=== PATIENT | female | born 1990 | race Caucasian/White ===

== ENCOUNTER 2020-09-27 12:04 | Emergency (ER) | payer BC, SELFPAY ==
--- NOTE | ~2020-09-27 | XR_ITS ---
EXAMINATION: XR chest 1V portable EXAM DATE: 09/27/2020 14:30 INDICATION: Cough, congestion. TECHNIQUE: Portable AP frontal chest x-ray was obtained. Comparison is made to prior examination from 04/14/2015. FINDINGS: The lungs are clear. There are no pleural effusions. The cardiomediastinal silhouette is within normal limits. There is no pneumothorax suspected. The bones and soft tissues are unremarkab le. IMPRESSION: No acute cardiopulmonary findings. Reviewed, dictated and finalized at location A.
[2020-09-27 12:09] VITALS: BP 122/72; PULSE 89; RESP 20; TEMP 36.8; O2SAT 98
[2020-09-27 13:59] VITALS: BP 112/71; PULSE 83; RESP 20; TEMP 36.8; O2SAT 100
[2020-09-27 14:29] VITALS: BP 107/79; PULSE 81; RESP 18; O2SAT 99
--- NOTE | 2020-09-27 14:44 | ED.URI ---
HPI - URI/Sore Throat General Chief Complaint: Upper Respiratory Infection Stated Complaint: sore throat Time Seen by Provider: 09/27/20 14:15 Source: patient Mode of arrival: ambulatory Limitations: no limitations History of Present Illness HPI Narrative: This is a 30-year-old female that presents to the emergency department for cold symptoms x2 weeks. Reports cough, congestion, and sinus pain. Reports over the last couple of days she also started to have a sore throat. Denies fever, chest pain, or shortness of breath. Related Data Allergies Allergy/AdvReac Type Severity Reaction Status Date / Time No Known Allergies Allergy Verified 09/27/20 14:48 Review of Systems Review of Systems: Narrative: CONSTITUTIONAL: Denies fever ENT: Reports rhinorrhea, congestion and sore throat CARDIOVASCULAR: Denies chest pain RESPIRATORY: Reports cough. Denies dyspnea. All systems reviewed & are unremarkable except as noted in HPI and below PMFSH Past Medical History Medical History (Updated 09/27/20 @ 15:24 by Chrissy Aguilar PA-C) No active medical problems Social History Social History (Updated 09/27/20 @ 14:45 by Chrissy Aguilar PA-C) Smoking status: Current every day smoker Gender identity (if verbalized by the patient): Female Exam Narrative: Exam Narrative: GENERAL: Well-appearing, well-nourished, and in no acute distress. HEAD: Normocephalic, atraumatic. EYES: EOMI. ENT: Nares clear, no rhinorrhea or epistaxis. Mucous membranes moist. Oropharynx without tonsillar hypertrophy exudate or other lesions. Bilateral TMs pearly diaz non-bulging. Tender to palpation of the frontal sinuses bilaterally NECK: Supple. No adenopathy or masses. CHEST: Clear to auscultation. No respiratory distress. No wheezes rales or rhonchi HEART: Regular rate and rhythm. No murmur heard. Normal peripheral pulses. EXTREMITIES: Normal range of motion. No edema. SKIN: Warm, dry, no rash. NEURO: No focal deficits. Alert and oriented x3. PSYCH: Normal mood and affect Course Vital Signs Vital signs: Vital Signs Temperature 98.3 F 09/27/20 12:09 Pulse Rate 89 09/27/20 12:09 Respiratory Rate 20 09/27/20 12:09 Blood Pressure 122/72 09/27/20 12:09 Pulse Oximetry 98 09/27/20 12:09 Temperature 98.2 F 09/27/20 13:59 Pulse Rate 81 09/27/20 14:29 Respiratory Rate 18 09/27/20 14:29 Blood Pressure 107/79 09/27/20 14:29 Pulse Oximetry 99 09/27/20 14:29 MDM - URI/Sore Throat MDM Narrative Medical decision making narrative: Patient presents the emergency department for cough, congestion, and sore throat. She is afebrile and nontoxic-appearing. Chest x-ray without acute cardiopulmonary findings. Strep screen was negative. SARS-CoV-2 was sent. For ongoing sinus congestion over the last couple of weeks we will start patient on oral antibiotic for bacterial sinusitis. She is stable and felt appropriate for further outpatient evaluation. She was given warnings to return to the ER Lab Data Attestation: I reviewed the patient's lab results. Labs: Lab Results 09/27/20 Range/Units 14:37 SARS-CoV-2 RNA (RT-PCR) Pending Strep Screen Presumptive Negative *(Reference Range: Negative)* Imaging Data Radiologist's impression: ITS Impressions Chest X-Ray 09/27/20 14:42 IMPRESSION: No acute cardiopulmonary findings. Critical Care Time Critical Care Time Critical Care Time: No Discharge Plan Discharge Clinical Impression: Acute bacterial sinusitis Patient Disposition: Home, Self-Care Condition: Stable Instructions: Antibiotic Form, Sinusitis (ED) Additional Instructions: Return to the emergency department for worsening symptoms, or any other concerns Remain well-hydrated, get plenty of rest. Take Tylenol or Motrin [id number] for pain as needed. Flonase for nasal congestion. Zyrtec for runny nose. Lozen
[2020-09-28 18:48] LABS: SARS-CoV-2 RNA PCR Negative
== END 2020-09-27 15:45 | disposition home or self-care (01) ==
PROVIDERS: Physician Assistant; Emergency Provider Emergency Medicine
DX: J01.90 Acute sinusitis, unspecified (principal); B96.89 Other specified bacterial agents as the cause of diseases classified elsewhere; Z20.822 Contact with and (suspected) exposure to COVID-19; F17.200 Nicotine dependence, unspecified, uncomplicated
CPT/HCPCS: 71045; 87081; 87880; 99283; C9803; U0003; U0005

== ENCOUNTER 2022-01-01 09:09 | Outpatient (RCR) | payer BC, SELFPAY ==
[2021-12-31 10:27] LABS: Hematocrit 29.7 % (37.0-47.0); Hemoglobin 9.7 g/dL (12.0-15.0)
[2021-12-31 10:40] LABS: Glucose 1 Hour PP 50gm Dose 97 mg/dL
[2021-12-31 11:22] LABS: HIV 1/2 Ab P24 Ag Result Negative (Negative)
[2022-01-01] MEDS: RHO(D) IMMUNE GLOBULIN 300 MCG/2 ML SYRINGE IM (21:48)
== END 2022-01-01 10:00 | disposition home or self-care (01) ==
LOC: ANHLAB 09:09
PROVIDERS: Visit Provider Obstetrics & Gynecology
DX: Z11.4 Encounter for screening for human immunodeficiency virus [HIV] (principal); Z29.13 Encounter for prophylactic Rho(D) immune globulin; O36.0190 Maternal care for anti-D [Rh] antibodies, unspecified trimester, not applicable or unspecified; Z3A.00 Weeks of gestation of pregnancy not specified
CPT/HCPCS: 36415; 82947; 85014; 85018; 85461; 86703; 90384; 96372; G0432; J2790

== ENCOUNTER 2022-03-17 05:59 | Inpatient (IN) | payer OTHER, MEDICAID, SELFPAY ==
[2022-03-17] VITALS (26 sets, daily range): BP systolic 82–134; BP diastolic 41–81; PULSE 69–94; TEMP 36.6–37.6; BMI 33.5
--- OUTSIDE RECORDS SUMMARY | 2022-03-17 06:06 | XMS_ITS | Encounter Summary ---
:1990 Author Reason for Visit OB visit Assessment and Plan Assessment Note Patient is ___weeks . Discussed plan. 1. Routine care Discussion Note: None recorded.Patient educational handouts: No information available. Plan of Care Reminders Provider Appointments None recorded. ? ? Lab None recorded. ? ? Referral None recorded. ? ? Procedures None recorded. ? ? Surgeries None recorded. ? ? Imaging None recorded. ? ? Medications Name Start Date ? ? fluconazole 150 mg tablet ? TAKE 1 TABLET BY MOUTH AND ANOTHER TABLET IN 48 HOURS Vitamin ? Medications Administered None recorded. Vitals Height Weight BMI Blood Pressure 5 ft 6 in 182 lbs 29.4 kg/m2 107/67 mm[Hg] Results Lab Results None recorded. Allergies Code Code System Name Reaction Severity Onset NKDA ? ? ? Problems Name Status Onset Date Source ? Active 09/07/2021 ? 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 Group B Streptococcus Carrier Active ? ? Sterilization Requested Active ? ? Procedures Date Name Performed by ? 05/15/1996 Tonsillectomy Information not avai lable ? Tonsillectomy Information not avai lable Vaccine List None recorded. Social History Tobacco Smoking Status Current Every Day Smoker Do you have difficulty walking or climbing stairs? N What type of diet are you following? REGULAR Are you able to walk? YESWOR
--- OUTSIDE RECORDS SUMMARY | 2022-03-17 06:06 | XMS_ITS | Encounter Summary ---
:1990 Author Reason for Visit None recorded. Assessment and Plan 1. Uterine size for dates discrepancy ? US, obstetric, follow-up Discussion Note: None recorded.Patient educational handouts: No information available. Plan of Care Reminders Provider Appointments None recorded. ? ? Lab None recorded. ? ? Referral None recorded. ? ? Procedures None recorded. ? ? Surgeries None recorded. ? ? Imaging US, Obstetric, Follow-up 01/26/2022 Felecia samuels Medications Name Start Date ? ? fluconazole 150 mg tablet ? TAKE 1 TABLET BY MOUTH AND ANOTHER TABLET IN 48 HOURS Vitamin ? Medications Administered None recorded. Vitals None recorded. Results Lab Results None recorded. Allergies Code Code System Name Reaction Severity Onset NKDA ? ? ? Problems Name Status Onset Date Source ? Active 09/07/2021 ? 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 Group B Streptococcus Carrier Active ? ? Sterilization Requested Active ? ? Procedures Date Name Performed by ? 05/15/1996 Tonsillectomy Information not avai lable ? Tonsillectomy Information not avai lable 01/26/2022 US, Obstetric, Follow-up [facility] [address] [place] [address] ([address]) Vaccine List None recorded. Social History Tobacco Smoking Status Current Every Day Smoker Do you have difficulty walking or climbing stairs? N
--- OUTSIDE RECORDS SUMMARY | 2022-03-17 06:06 | XMS_ITS | Encounter Summary ---
[...] BMI Blood Pressure 5 ft 6 in 181 lbs 29.2 kg/m2 125/79 mm[Hg] Results Lab Results None recorded. Allergies Code Code System Name Reaction Severity Onset NKDA ? ? ? Problems Name Status Onset Date Source ? Active 09/07/2021 ? 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 Group B Streptococcus Carrier Active ? ? Sterilization Requested Active ? ? Procedures Date Name Performed by ? 05/15/1996 Tonsillectomy Information not avai lable ? Tonsillectomy Information not avai lable 02/28/2022 US, Obstetric, Follow-up [facility] [address] [place] [address] ([address]) Vaccin
--- OUTSIDE RECORDS SUMMARY | 2022-03-17 06:06 | XMS_ITS | Encounter Summary ---
[...] BMI Blood Pressure 5 ft 6 in 184 lbs 29.7 kg/m2 108/67 mm[Hg] Results Lab Results None recorded. Allergies [...] following? REGULAR Are you able to walk? YESWO
--- OUTSIDE RECORDS SUMMARY | 2022-03-17 06:06 | XMS_ITS ---
:1990 Author Care Team Providers Name Role Phone Jai Mason Primary Care Provider Unavailable Allergies Code Code System Name Reaction Severity Status Onset NKDA ? Medications Name Status Start Date Stop Date ? ? amoxicillin 500 mg capsule Completed 08/14/201708/23 take 1 capsule by oral route 3 times every day for 10 days amoxicillin 875 mg-potassium clavulanate 125 mg Completed ? 10/21/2020 tablet cephalexin 500 mg tablet Completed 07/10/2015 016 Take one tablet by oral route twice a day for 7 days fluconazole 150 mg tablet Active ? Not av ailable TAKE 1 TABLET BY MOUTH AND ANOTHER TABLET IN 48 HOURS 06/03 (28) 1 mg-20 mcg (21)/75 mg (7) tablet Completed 01/14/2015 06/23/2015 take 1 tablet by oral route every day Macrobid 100 mg capsule Completed 06/01/2018 06/26/19 19 take 1 capsule by oral route every 12 hours with food Ortho Tri-Cyclen (28) 0.18 mg(7)/0.215 mg(7)/0.25 mg(7)-35 m cg tablet Completed 01/28/2016 03/01/2016 take 1 tablet by oral route every day Vitamin Active ? Not available Slynd 4 mg (28) tablet Completed ? 2 Triveen-Duo DHA 29 mg-1 mg-400 mg oral pack Completed 01/201607/22/2015 take 2 by Oral route once for 30 days Vitamin D2 1,250 mcg (50,000 unit) capsule Completed 06/3009/28/2015 take 1 capsule by oral route every week Problems Name Status Onset Date Source ? Abdominal Pain Unknown 05/04/2012 History Blood in Urine Unknown 10/21/2012 History Complication of , Childbirth And/or Puerperium Unknown 10/21/2012 History Premature Rupture of
--- OUTSIDE RECORDS SUMMARY | 2022-03-17 06:06 | XMS_ITS | Encounter Summary ---
[...] ft 6 in 182 lbs 29.4 kg/m2 126/78 mm[Hg] Results Lab Results None recorded. Allergies [...] not avai lable 02/28/2022 US, Obstetric, Follow-up [facility] [address] [place] [address] ([address]) Vaccin
--- OUTSIDE RECORDS SUMMARY | 2022-03-17 06:06 | XMS_ITS | Encounter Summary ---
[...] ft 6 in 184 lbs 29.7 kg/m2 113/70 mm[Hg] Results Lab Results None recorded. Allergies [...] not avai lable 01/26/2022 US, Obstetric, Follow-up [facility] [address] [place] [address] ([address]) Vacci
--- OUTSIDE RECORDS SUMMARY | 2022-03-17 06:06 | XMS_ITS | Encounter Summary ---
:1990 Author Reason for Visit None recorded. Assessment and Plan 1. Large for gestation age fetus ? US, obstetric, follow-up Discussion Note: None recorded.Patient educational handouts: No information available. Plan of Care Reminders Provider Appointments None recorded. ? ? Lab None recorded. ? ? Referral None recorded. ? ? Procedures None recorded. ? ? Surgeries None recorded. ? ? Imaging US, Obstetric, Follow-up 02/28/2022 Felecia samuels Medications Name Start Date ? [...] not avai lable 02/28/2022 US, Obstetric, Follow-up [facility] [address] [place] [address] ([address]) Vaccine List None recorded. Social History Tobacco Smoking Status Current Every Day Smoker Do you have difficulty walking or climbing stairs? N
--- NOTE | 2022-03-17 06:34 | LDADM ---
This patient, Judit Knapp, was admitted to Labor/Delivery/Recovery 105 on 03/17/22 at 05:59. Plans for labor, pain management and were discussed with patient. Patient/family oriented to hospital policies and general routines including ID bracelet, bed and alarms, visiting hours, pain management, procedures, bathroom and other care routines, personal items, smoking policy, room service/diet and guest tray routines, infant security routines, and visiting hours. Patient/Family are encouraged to report perceived risks to care and to ask questions if they do not understand what they are told or what they should do. See OBIX for further documentation.
[2022-03-17] MEDS: OXYTOCIN 30 UNITS/NS 500 ML 30 UNITS/500 ML BAG IV CONT (07:25)
[2022-03-17] MEDS: LACTATED RINGERS 1,000 ML 125 ML IV CONT ×3 (07:25→22:05)
[2022-03-17 07:26] LABS: Basophils Percent Auto 0.4 % (0.2-1.2); Eosinophils Absolute Auto 0.1 K/mm3 (0-0.3); Eosinophils Percent Auto 1.3 % (0-4.4); Hemoglobin 9.3 g/dL (12.0-15.0); Immature Granulocyte Absolute 0.06 K/mm3 (0.00-0.031); Immature Granulocyte Percent A 0.7 % (0-0.5); Lymphocytes Percent Auto 23.1 % (18.3-44.2); Mean Corpuscular Hemoglobin 27.1 pg (26-34); Mean Corpuscular Volume 87.5 fl (80-100); Mean Platelet Volume 11.7 fl (7.4-10.4); Monocytes Absolute Auto 0.4 K/mm3 (0.1-0.6); Monocytes Percent Auto 5.2 % (2.6-8.5); Neutrophils Absolute Auto 5.7 K/mm3 (1.3-6.7); Neutrophils Percent Auto 69.3 % (45.5-73.1); Platelet Count Result 164 k/mm3 (150-375); Red Blood Count 3.43 M/mm3 (4.2-5.4); Red Cell Distribution Width 13.3 % (11.5-14.5); White Blood Count 8.2 K/mm3 (4.5-10.0)
[2022-03-17] MEDS: AMPICILLIN 2 GM/NS 100 ML 2 GM/100 ML BAG IVPB (07:26)
--- NOTE | 2022-03-17 08:14 | PM.IMHP ---
H&P: HPI History of Present Illness Date/Time: 03/17/22 08:14 Chief Complaint: Term Narrative: patient presents for induction of labor. She is a 7 para 6 at 39 weeks gestation. She was discovered to have a breech baby after rupture of membranes. Her external cephalic version was performed at the bedside with ultrasound. It was successful to degree. She now has hand presentation with the head just behind the hand. She does not feel the contractions. She denies any vaginal bleeding. She denies any nausea, vomiting, fever, chills. She denies any chest pain shortness of breath. Review of Systems Review of Systems: All systems reviewed & are unremarkable except as noted in HPI and below Constitutional: Constitutional: Denies chills, Denies fatigue, Denies fever(s) and Denies weakness Eyes: Eyes: Denies blurry vision, Denies change in vision, Denies loss of peripheral vision, Denies loss of vision, Denies other visual disturbances and Denies eye pain ENT: Denies vertigo, Denies dizziness, Denies hearing loss, Denies mouth pain, Denies nasal obstruction, Denies neck mass and Denies neck pain Cardiovascular: Cardiovascular: Denies chest pain, Denies diaphoresis, Denies syncope, Denies leg edema and Denies dyspnea Respiratory: Respiratory: Denies chest congestion, Denies cough, Denies hemoptysis, Denies dyspnea and Denies wheezing Gastrointestinal: Gastrointestinal: Denies abdominal pain, Denies constipation, Denies diarrhea, Denies nausea and Denies vomiting Genitourinary: Genitourinary: Denies hematuria, Denies change in libido, Denies nocturia, Denies genital lesions, Denies flank pain and Denies urinary urgency Musculoskeletal: Musculoskeletal: Denies abnormal gait, Denies back pain, Denies myalgias, Denies arthralgias, Denies joint swelling, Denies muscle weakness and Denies neck pain Integumentary/Breasts: Skin/Breast: Denies swelling, Denies breast pain, Denies breast mass, Denies dry skin, Denies nipple discharge, Denies unusual bruising and Denies jaundice Neurologic: Denies Neuro-related abnormal movements, Denies Abnormal speech present, Denies abnormal gait, Denies behavioral changes, Denies confusion, Denies vertigo, Denies dizziness, Denies syncope, Denies loss of vision, Denies memory loss, Denies convulsions and Denies weakness Psychiatric: Psychiatric: Denies abnormal sleep pattern, Denies behavioral changes, Denies change in libido, Denies confusion, Denies depression, Denies anhedonia and Denies memory loss Endocrine: Endocrine: Reports no additional endocrine complaints, Denies change in libido and Denies fatigue Hematologic/Lymphatic: Hematologic/Lymphatic: Reports no additional hematologic/lymphatic complaints Allergic/Immunologic: Allergic/Immunologic: Reports no additional allergic/immunologic complaints and Denies wheezing PMFSH Past Medical History Medical History (Updated 03/17/22 @ 08:17 by Anthony Mason MD) No active medical problems Family History Family History (Updated 02/28/22 @ 12:51 by Lucina Lu RN) Grandparent Lung cancer Grandparent Lung cancer Mother Hypertension Grandparent No problems noted. Father Hypertension Social History Social History (Updated 09/27/20 @ 14:45 by Chrissy Aguilar PA-C) Smoking status: Never smoker Substance use: never Has the Lack of Transportation Kept You From Medical Appointments or From Getting Medications?: No Within the Past 12 Months, Were You Worried Whether Your Food Would Run Out Before You Got Money to Buy More?: Never True What is Your Housing Situation Today?: I Have Housing Are You Worried That in the Next 2 Months, You May Not Have Your Own Housing to Live In?: No Do You Have Trouble Paying Your Heating Or Electricity Bill?: No Do You Have Trouble Paying For Medicines?: No Are You Currently Unemployed and Looking for Work?: No Highest Level of Education Completed: High School Diploma/G
[2022-03-17] MEDS: AMPICILLIN 1 GM/NS 50 ML 1 GM/50 ML BAG IVPB ×3 (11:49→19:51)
--- NOTE | 2022-03-17 17:56 | PM.OBPNVD ---
OB - PN: Subj Subjective Date/time seen: 03/17/22 17:56 hand presentation has resolved, she is 4 cm, clear fluid, no fever, continuing induction of labor and expectant management. Slow progression of her cervix. Inconsistent and low-frequency contractions. Reassuring status. OB - PN: Obj Data Labs CBC & Chem 7: 03/17/22 06:39 Labs: Laboratory Results - last 24 hr 03/17/22 03/17/22 06:39 06:39 WBC 8.2 RBC 3.43 L Hgb 9.3 L Hct 30.0 L MCV 87.5 MCH 27.1 MCHC 31.0 L RDW 13.3 Plt Count 164 MPV 11.7 H Immature Gran % (Auto) 0.7 H Neut % (Auto) 69.3 Lymph % (Auto) 23.1 [place] % (Auto) 5.2 Eos % (Auto) 1.3 Baso % (Auto) 0.4 Lymph # (Auto) 1.90 [place] # (Auto) 0.4 Eos # (Auto) 0.1 Baso # (Auto) 0.0 Abs Immat Gran (auto) 0.06 H Absolute Neuts (auto) 5.7 Absolute Nucleated RBC 0.0 Nucleated RBC % 0.0 Blood Type A Negative Antibody Screen Positive Antibody Identification Passive Due to RH Imm Glob Antigen Identification Cancelled ABDIFATAH, IgG Interpret Not Performed ABDIFATAH, Poly Interpret Negative ABDIFATAH, Complement Interp Not Performed OB - PN A/P Assessment and Plan (1) Grand multiparity: Code(s): Z64.1 - Problems related to multiparity Status: Acute (2) Term : Code(s): Z34.90 - Encounter for supervision of normal , unspecified, unspecified trimester Status: Acute (3) Encounter for elective induction of labor: Code(s): Z34.90 - Encounter for supervision of normal , unspecified, unspecified trimester Status: Acute Time Spent With Patient Time: Total time spent is greater than 50% in coordination of care (as documented) at patient's floor/unit and/or counseling patient:
[2022-03-18] VITALS (97 sets, daily range): BP systolic 85–152; BP diastolic 53–101; PULSE 51–121; RESP 16–18; TEMP 36.3–36.9; O2SAT 85–100
[2022-03-18] MEDS: AMPICILLIN 1 GM/NS 50 ML 1 GM/50 ML BAG IVPB (01:29)
[2022-03-18] MEDS: LACTATED RINGERS 1,000 ML 999 ML IV CONT (01:30)
--- NOTE | 2022-03-18 01:38 | WPDANESEPP ---
Anes - Eval Pre Procedure Procedure: LAbor epidural Date/Time: 03/18/22 01:38 Surgeon: Marlon Preop Diagnosis: Abd pain with contractions Pre Op Diagnosis: IOL Patient Data Age: 31 Gender: F Height: 1.57 m Weight: 83 kg Last Vital Signs Temp 98 F 03/18/22 01:31 Pulse 76 03/18/22 01:31 BP 140/89 03/18/22 01:31 Pulse Ox 99 03/18/22 01:35 O2 Del Method Room Air 03/17/22 06:33 Allergies Allergy/AdvReac Type Severity Reaction Status Date / Time No Known Allergies Allergy Verified 09/27/20 14:48 Laboratory Tests 03/17/22 03/17/22 03/17/22 06:39 06:39 06:39 WBC 8.2 K/mm3 K/mm3 (4.5-10.0) RBC 3.43 M/mm3 L M/mm3 (4.2-5.4) Hgb 9.3 g/dL L g/dL (12.0-15.0) Hct 30.0 % L % (37.0-47.0) MCV 87.5 fl fl (80-100) MCH 27.1 pg pg (26-34) MCHC 31.0 g/dl L g/dl (32-36) RDW 13.3 % % (11.5-14.5) Plt Count 164 k/mm3 k/mm3 (150-375) MPV 11.7 fl H fl (7.4-10.4) Immature Gran % (Auto) 0.7 % H % (0-0.5) Neut % (Auto) 69.3 % % (45.5-73.1) Lymph % (Auto) 23.1 % % (18.3-44.2) [place] % (Auto) 5.2 % % (2.6-8.5) Eos % (Auto) 1.3 % % (0-4.4) Baso % (Auto) 0.4 % % (0.2-1.2) Lymph # (Auto) 1.90 K/mm3 K/mm3 (0.9-3.2) [place] # (Auto) 0.4 K/mm3 K/mm3 (0.1-0.6) Eos # (Auto) 0.1 K/mm3 K/mm3 (0-0.3) Baso # (Auto) 0.0 K/mm3 K/mm3 (0.0-0.1) Abs Immat Gran (auto) 0.06 K/mm3 H K/mm3 (0.00-0.031) Absolute Neuts (auto) 5.7 K/mm3 K/mm3 (1.3-6.7) Absolute Nucleated RBC 0.0 K/mm3 K/mm3 (0.0-0.012) Nucleated RBC % 0.0 % % (0.0-0.2) RPR Pending Blood Type A Negative Antibody Screen Positive Antibody Identification Passive Due to RH Imm Glob Antigen Identification Cancelled ABDIFATAH, IgG Interpret Not Performed ABDIFATAH, Poly Interpret Negative ABDIFATAH, Complement Interp Not Performed Patient hx anesthesia problems: none Family hx anesthesia problems: none Results Review: All pre-operative results and documents have been reviewed as part of the pre-operative evaluation. [facility] Past Medical History Medical History Grand multiparity No active medical problems Overweight (BMI 25.0-29.9) Post depression Family History Family History Grandparent Lung cancer Grandparent Lung cancer Mother Hypertension Grandparent No problems noted. Father Hypertension Social History Social History Smoking status: Never smoker Substance use: never Has the Lack of Transportation Kept You From Medical Appointments or From Getting Medications?: No Within the Past 12 Months, Were You Worried Whether Your Food Would Run Out Before You Got Money to Buy More?: Never True What is Your Housing Situation Today?: I Have Housing Are You Worried That in the Next 2 Months, You May Not Have Your Own Housing to Live In?: No Do You Have Trouble Paying Your Heating Or Electricity Bill?: No Do You Have Trouble Paying For Medicines?: No Are You Currently Unemployed and Looking for Work?: No Highest Level of Education Completed: High School Diploma/GED Do You Have Trouble With Childcare or the Care of a Family Member?: No Gender identity (if verbalized by the patient): Female Spiritual care concerns: No Exam Day of Procedure 03/18/22 01:38 Patient weight: overweight Airway: Mallampati scale class II
--- NOTE | 2022-03-18 03:22 | PM.OBPRVD ---
OB - Delivery Note Procedure Procedure: Induction method: AROM and Per Pitocin Protocol Delivery monitor: External FHT and Internal Uterine Route of delivery: Laceration Description: None Quantitative Blood Loss (ml): 200 Anesthesia type: Epidural Baby Date of : 03/18/22 Time of : 03:08 Weeks of gestation at delivery: 39 Weight (pounds): 7 Weight (ounces): 14 score one minute: 8 score five minutes: 9
[2022-03-18] MEDS: OXYTOCIN 30 UNITS/NS 500 ML 30 UNITS/500 ML BAG 125 UNITS IV CONT (03:50)
[2022-03-18 06:52] LABS: Rapid Plasma Reagin Non-Reactive (NonReactive)
[2022-03-18] MEDS: MULTIVIT/MIN/PREN/FOL AC/IRON TABLET 1 TAB PO (07:58)
[2022-03-18] MEDS: DOCUSATE SODIUM 100 MG CAPSULE PO ×2 (07:58→16:59)
[2022-03-18] MEDS: POLYSACCHARIDE IRON COMPLEX 150 MG CAPSULE PO ×2 (07:59→17:00)
--- NOTE | 2022-03-18 11:56 | PC.NURSE ---
Report received this morning that mother is only bottle feeding.
[2022-03-19 05:07] LABS: Hematocrit 26.9 % (37.0-47.0); Hemoglobin 8.1 g/dL (12.0-15.0)
--- NOTE | 2022-03-19 08:00 | PC.NURSE ---
PT introductions made and plan of care discussed per post , pain management, bottle feeding, daily care activities and pending discharge to home. PT received instructions this shift via one to one discussion, mom baby care guide and demonstrations. No barriers to learning identified at this time. PT verbalized understanding of such care.
[2022-03-19 09:30] VITALS: BP 123/78; PULSE 70; RESP 18; TEMP 36.3; O2SAT 100
[2022-03-19] MEDS: POLYSACCHARIDE IRON COMPLEX 150 MG CAPSULE PO (09:45)
[2022-03-19] MEDS: MULTIVIT/MIN/PREN/FOL AC/IRON TABLET 1 TAB PO (09:45)
[2022-03-19] MEDS: DOCUSATE SODIUM 100 MG CAPSULE PO (09:46)
--- NOTE | 2022-03-19 13:25 | PM.OBPNVD ---
OB - PN: Subj Subjective Date/time seen: 03/19/22 13:25 Patient comments: no complaints, pain well controlled, incisional pain, tolerating diet and flatus present OB - PN: Obj Data Labs CBC & Chem 7: 03/19/22 04:48 Labs: Laboratory Results - last 24 hr 03/19/22 04:48 Hgb 8.1 L Hct 26.9 L OB - PN A/P Plan day: 1 Plan: routine care Comments: No problems, routine care Time Spent With Patient Time: Total time spent is greater than 50% in coordination of care (as documented) at patient's floor/unit and/or counseling patient: Exam Const: General: comfortable, no acute distress and alert Resp: Effort & Inspection: normal respiratory effort Auscultation: no crackles, no rales and no rhonchi Cardio: Rate: regular rate Heart sounds: no click, no murmurs and no rubs GI: Inspection: non-distended GI Palp: No Tenderness to palpation present (GI) Auscultation: normal bowel sounds Other: Incision - CDI Extrem: General: normal to inspection, no pedal edema and no calf tenderness
--- NOTE | 2022-03-19 13:26 | PM.OBDSVD ---
DS: Admitting Diagnosis Discharge Date 03/19/22 Admitting Diagnosis term OB - DS: Summary OB Procedures : None OB Procedures Intrapartum: Spontaneous Vag Delivery OB Procedures: : None Time Spent with Patient Time attestation: Total time spent providing and/or coordinating discharge services: DS: Data Data Completed and Pending Labs on day of discharge: Labs from last 24 hours 03/19/22 04:48 Hgb 8.1 L Hct 26.9 L Discharge Plan Discharge Attending physician on discharge: Anthony Mason Discharging Clinician: Anthony Mason Patient Disposition: Home, Self-Care Activity: pelvic rest Diet: regular Discharge Instructions: Education: Mom and Baby Guide Given to: Mother Follow-Up: Call your delivering provider's office for an appointment to be seen in: 4 Weeks Mom and baby should come to the [facility] for the follow-up appointment. Appointment Date/Time: March 21, 2022 at 9:00 am What to expect at your follow-up visit: Blood Pressure Check Call [phone] if you are unable to keep your appointment time. BREAST CARE: * Wear a snug supportive bra. * For engorgement discomfort: Bottle Feeding: * May apply ice packs PERINEAL CARE: * Until bleeding stops, use your jenni bottle after urinating * Change your pad frequently throughout the day * You may take sitz baths several times a day (fill your bathtub with warm water and soak for 20 minutes.) Do NOT bathe in the water * No tub baths until seen by your physician - You may shower ACTIVITY: * Rest as much as possible. * Do not exercise or lift anything heavier than your baby (such as laundry or other children.) * Avoid stairs or driving as much as possible. * Do not put anything into the vagina. No douching, tampons, or sexual activity until seen by physician. NOTIFY PHYSICIAN IF YOU HAVE ANY QUESTIONS OR IF ANY OF THE FOLLOWING SYMPTOMS OCCUR: * If your perineum becomes red, swollen, or more painful than what you have experienced in the hospital. * If your vaginal bleeding becomes foul smelling. * If your vaginal bleeding becomes more heavy than a period or if your bleeding changes from pink to bright red. However, you may pass an occasional walnut-sized clot once or twice for the first week . * If you experience a sharp, shooting pain in you calves. * If you discover a hard, reddened area on your breast or if you experience flu-like symptoms. * If you have a fever of 100.4 or greater DIET: * Eat regular, well-balanced meals. * Drink plenty of fluids daily. If , drink to thirst. Patient Instructions: Antibiotic Form Stand Alone Forms: General Discharge Information Follow-up/Referrals: Anthony Mason MD [Physician] - Date of admission: 03/17/22 05:59 Primary Care Provider: PHYSICIAN,SALESPERSON [employer] Admitting Provider: Anthony Mason Attending physician on admission: Anthony Mason Condition: Stable
[2022-03-19] MEDS: TETANUS,DIPHTHERIA,AC PERTUSSIS ADULT (0.5 ML) BOOSTRIX IM (14:44)
--- NOTE | 2022-03-19 15:11 | PC.NURSE ---
PT discharged to home ambulatory accompanied by spouse and and taken to waiting car. Follow up appts confirmed
--- NOTE | 2022-03-19 15:11 | PC.NURSE ---
PT discharged to home ambulatory accompanied by spouse and and taken to waiting car. follow up appts confirmed
[2022-03-21 09:29] VITALS: BP 117/78; PULSE 75; RESP 20; TEMP 36.8; O2SAT 100
== END 2022-03-19 15:11 | disposition home or self-care (01) | DRG 807 ==
LOC: ANHLDR 06:10 → ANHOB2 03-18 05:39
PROVIDERS: Admitting Provider Obstetrics & Gynecology; Visit Provider Obstetrics & Gynecology
DX: O32.1XX0 Maternal care for breech presentation, not applicable or unspecified (principal); Z37.0 Single live birth; Z3A.39 39 weeks gestation of pregnancy; O36.8330 Maternal care for abnormalities of the fetal heart rate or rhythm, third trimester, not applicable or unspecified
CPT/HCPCS: 36415; 85014; 85018; 85025; 86592; 86850; 86880; 86900; 86901; 86902; 90715; A9270; J0290; J2590; J2795; J7120

== ENCOUNTER 2022-09-13 02:11 | Day surgery (SDC) | payer BC, MEDICAID, SELFPAY ==
[2022-09-09 08:37] VITALS: BMI 34.0
--- NOTE | 2022-09-09 08:42 | PC.NURSE ---
Report to the Outpatient Waiting Room, entrance under the green pavilion located off [facility], at time 0800 on date 09/13/22. Planned Procedure Time: 1000. Time changes happen often and if your time is changed the preop area will call you the afternoon before. - You and your visitor will be asked to self-screen and do not enter if you have any COVID symptoms. - A mask is optional within the hospital at this time. Patients may have clear liquids (water, carbonated beverages, clear teas, apple juice) until 3 hours prior to surgery with a maximum of 20 ounces. - No food from midnight until time of surgery Take the following medications with a SIP of water the morning of surgery: N/A DO NOT STOP ANY OF YOUR OTHER PRESCRIPTION MEDICATIONS PRIOR TO SURGERY EXCEPT THE FOLLOWING Medications to discontinue per physician: N/A Date to take last dose: N/A Please no make-up, nail pashto, hairspray, perfume, deodorant, or body powder the day of surgery. No jewelry (including any body piercings) or valuables the day of surgery, leave them at home. Please take a shower or bath the night before, or the morning of, surgery with an antibacterial soap. Wear comfortable, loose fitting clothing. - Jewelry must be removed prior to entering the operating room. Rings and piercings that are not removed may be cut off. - The hospital will not accept responsibility for valuables. - Please leave all valuables, including medications, at home the day of surgery. If you are going home after surgery, a licensed driver's education instructor must drive you home. - NO public transportation without another adult if you receive anesthesia. - We recommend that an adult stay with you for 24 hours following discharge. - We also recommend that you do not drive, make important decision, drink alcoholic beverages, or take any drugs that were not prescribed by your health care provider for at least 24 hours after your discharge time. Follow any additional instructions given to you from your surgeon. If you or anyone in your household have experienced Covid symptoms in the past week, please notify your surgeon or the nurse liaison at the phone number below for possible testing. Telephone instructions given to PT - ISAAC QUIÑONEZ and asked if any additional questions and then verbalized understanding. Patient advised to call surgeon office or pre surgery nurse liaison [phone] if any additional questions.
--- NOTE | 2022-09-12 15:22 | P.PNAN_ITS ---
Anes - Initial Pre Proc Eval Procedure: Operation Date: 09/13/22 10:00 Proposed Procedures p Laparoscopic Bilateral Salpingectomy - Anthony Mason MD Date/Time: 09/12/22 15:22 Surgeon: Anthony Mason MD Pre Op Diagnosis: Female Sterilization Patient Data Age: 32 Gender: F Height: 1.57 m Weight: 84.5 kg Allergies Allergy/AdvReac Type Severity Reaction Status Date / Time No Known Allergies Allergy Verified 09/09/22 08:36 Home Medications Medication Instructions Recorded Confirmed Type No Home Medications 09/09/22 09/09/22 History Patient hx anesthesia problems: none Family hx anesthesia problems: none Results Review: All pre-operative results and documents have been reviewed as part of the pre- operative evaluation. 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 Father Hypertension Social History Social History Smoking packs per day: 1 Smoking cigarettes per day: 20.0 Years smoked: 6 Smoking pack-years: 6.00 Smoking status: Current every day smoker Tobacco type: cigarettes Alcohol intake: current Alcohol use details: 2/MONTH Substance use: never Substance use type: does not use Lack of Transportation: No Lack of Food: Never True Current Housing: I Have Housing Concerned About Future Housing: No Difficulty Paying Gas/Electric Bills: No Difficulty Paying for Meds: No Currently Unemployed: No Education: High School Diploma/GED Difficulty w/ Childcare or Family Care: No Living arrangements: with family Additional living arrangements comments: CHILDREN Gender identity (if verbalized by the patient): Female Spiritual care concerns: No Anes - Eval Final PreProcedure Day of Procedure 09/12/22 15:22 Patient weight: obese Heart: regular rate and rhythm Lungs: clear to auscultation and normal air movement Airway: Mallampati scale class II Neurological: alert and oriented Last oral intake: >/= 8 hours ASA classification: II Emergent: no Anesthetic plan: proceed Anesthesia type and monitoring: general ETT Results Review: All pre-operative results and documents have been reviewed as part of the pre- operative evaluation. Informed Consent: The patient's anesthetic plan and its attendant risks and benefits were discussed with the patient/family/POA. Questions were solicited and answers provided to the satisfaction of the patient/family/POA.
[2022-09-13] VITALS (7 sets, daily range): BP systolic 100–115; BP diastolic 54–72; PULSE 52–66; RESP 16; TEMP 36.1–36.8; O2SAT 97–100
[2022-09-13] MEDS: KETOROLAC 15 MG/ML VIAL (*BKC) IV PUSH (08:30)
[2022-09-13] MEDS: ACETAMINOPHEN 500 MG TABLET 1000 MG PO (08:30)
[2022-09-13] MEDS: LACTATED RINGERS 1,000 ML 30 ML IV CONT ×2 (08:30→11:21)
--- NOTE | 2022-09-13 09:37 | PM.IMHP ---
H&P: HPI History of Present Illness Date/Time: 09/13/22 09:37 Chief Complaint: female sterilization Narrative: this patient is a 32-year-old female who desires female sterilization. We agreed to perform laparoscopic bilateral salpingectomy. She understands the procedure. Was explained to her in detail. She understands injuries may occur that result in hospitalization, more surgery, and severe illness. She understands there is risk of hemorrhage infection. She denies any chest pain or shortness of breath. She denies any nausea, vomiting, fever, chills. Review of Systems Review of Systems: All systems reviewed & are unremarkable except as noted in HPI and below Constitutional: Constitutional: Denies chills, Denies fatigue, Denies fever(s) and Denies weakness Eyes: Eyes: Denies blurry vision, Denies change in vision, Denies loss of peripheral vision, Denies loss of vision, Denies other visual disturbances and Denies eye pain ENT: Denies vertigo, Denies dizziness, Denies hearing loss, Denies mouth pain, Denies nasal obstruction, Denies neck mass and Denies neck pain Cardiovascular: Cardiovascular: Denies chest pain, Denies diaphoresis, Denies syncope, Denies leg edema and Denies dyspnea Respiratory: Respiratory: Denies chest congestion, Denies cough, Denies hemoptysis, Denies dyspnea and Denies wheezing Gastrointestinal: Gastrointestinal: Denies abdominal pain, Denies constipation, Denies diarrhea, Denies nausea and Denies vomiting Genitourinary: Genitourinary: Denies hematuria, Denies change in libido, Denies nocturia, Denies genital lesions, Denies flank pain and Denies urinary urgency Musculoskeletal: Musculoskeletal: Denies abnormal gait, Denies back pain, Denies myalgias, Denies arthralgias, Denies joint swelling, Denies muscle weakness and Denies neck pain Integumentary/Breasts: Skin/Breast: Denies swelling, Denies breast pain, Denies breast mass, Denies dry skin, Denies nipple discharge, Denies unusual bruising and Denies jaundice Neurologic: Denies Neuro-related abnormal movements, Denies Abnormal speech present, Denies abnormal gait, Denies behavioral changes, Denies confusion, Denies vertigo, Denies dizziness, Denies syncope, Denies loss of vision, Denies memory loss, Denies convulsions and Denies weakness Psychiatric: Psychiatric: Denies abnormal sleep pattern, Denies behavioral changes, Denies change in libido, Denies confusion, Denies depression, Denies anhedonia and Denies memory loss Endocrine: Endocrine: Reports no additional endocrine complaints, Denies change in libido and Denies fatigue Hematologic/Lymphatic: Hematologic/Lymphatic: Reports no additional hematologic/lymphatic complaints Allergic/Immunologic: Allergic/Immunologic: Reports no additional allergic/immunologic complaints and Denies wheezing PMFSH Past Medical History Medical History (Updated 09/13/22 @ 09:44 by Anthony Mason MD) 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 Father Hypertension Social History Social History Smoking packs per day: 1 Smoking cigarettes per day: 20.0 Years smoked: 6 Smoking pack-years: 6.00 Smoking status: Current every day smoker Tobacco type: cigarettes Alcohol intake: current Alcohol use details: 2/MONTH Substance use: never Substance use type: does not use Lack of Transportation: No Lack of Food: Never True Current Housing: I Have Housing Concerned About Future Housing: No Difficulty Paying Gas/Electric Bills: No Difficulty Paying for Meds: No Currently Unemployed: No Education: High School Diploma/GED Difficulty w/ Childcare or Family Care: No Susyin
--- NOTE | 2022-09-13 09:45 | WPDHPUPDATE1 ---
History and Physical Update Update Date/Time: 09/13/22 09:45 History and Physical has been reviewed, including an updated exam of the patient. There are NO changes in the patient's condition. Risks, benefits, and alternatives have been discussed and questions answered. Patient agrees to proceed with procedure.
--- NOTE | 2022-09-13 10:36 | W.PM.PROC2 ---
Procedure Note - Detailed Date of Procedure 09/13/22 Pre-op Diagnosis Female Sterilization Post-op Diagnosis Same Procedure Performed Laparoscopic bilateral salpingectomy Surgeon Anthony Mason MD Anesthesia General Indications Unwanted fertility Findings Normal pelvic anatomy Description of Procedure The patient was taken the operating room. She was prepped and draped in the dorsal lithotomy position after induction of general anesthesia. A 5 mm skin incision was made in the left upper quadrant of the abdominal skin. A 5 mm trocar was inserted the intra-abdominal cavity under direct visualization of the scope. Pneumoperitoneum was achieved. A 5 mm trocar was inserted in the left lower quadrant identical fashion. A 5 mm infraumbilical trocar was inserted in identical fashion as well. The bilateral fallopian tubes were removed. This was done by using a LigaSure cautery. The mesosalpinx adjacent to the tube was cauterized transected with LigaSure. This was initiated in the area the ovary and in a stepwise fashion moved medially to the area of the cornu of the uterus. Once there the fallopian tube was cauterized and transected. This was done in identical fashion on each side. The fallopian tubes were taken out through the left lower quadrant trocar site. The pneumoperitoneum was reduced. The trocars removed. The skin was closed with subcuticular 4 Monocryl and covered with Dermabond. She was taken to cover stable condition. Sponge lap and needle counts were correct x2. Estimated Blood Loss 5 Drains No Packing No Pathology Yes Complications No immediate complications Condition Stable Disposition PACU
[2022-09-13] MEDS: fentaNYL CITRATE INJ (*CRX) 100 MCG/2 ML VIAL 25 MCG IV PUSH (11:52)
[2022-09-13] MEDS: oxyCODONE HCL (*CRX) 5 MG TAB IR PO (11:58)
== END 2022-09-13 12:25 | disposition home or self-care (01) ==
PROVIDERS: Visit Provider Obstetrics & Gynecology
PROC: (CPT 49320; principal; 2022-09-13 10:00)
DX: Z30.2 Encounter for sterilization (principal); N83.8 Other noninflammatory disorders of ovary, fallopian tube and broad ligament; F17.210 Nicotine dependence, cigarettes, uncomplicated; E66.9 Obesity, unspecified; Z68.32 Body mass index [BMI] 32.0-32.9, adult
CPT/HCPCS: 58661; 88302; A9270; J1100; J1885; J2250; J2405; J2704; J2710; J3010; J7030; J7120